=== PATIENT | female | born 2000 | race African-American/Black ===

== ENCOUNTER → 2022-10-06 | Outpatient (CLI) | payer MEDICARE, OTHER ==
[~2022-10-06] MED LIST: IOPAMIDOL 610MG/1ML 300 MG/ML VIAL IV ONE
== END ==
LOC: DX 13:37
PROVIDERS: ATTEND Obstetrics & Gynecology
DX: Z31.41 Encounter for fertility testing (principal)
CPT/HCPCS: 74740; 81025; Q9967